=== PATIENT | female | born 1945 | race Asian ===

== ENCOUNTER 2016-11-22 13:38 | Emergency (ER) | payer MEDICARE ==
[~2016-11-22] VITALS: Ht 157.5 cm; Wt 47.7 kg
[~2016-11-22 13:38] MED LIST: HYDR12.56 PO; LATU40TA OR; LORTA5; VIST25CA PO; Z.0.NO CURRENT MEDS
[2016-11-22 13:43] VITALS: BP 157/71; PULSE 81; RESP 20; TEMP 97.3; O2SAT 99
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
[2016-11-22] MEDS ORDERED: TIZA4 PO (14:13)
[2016-11-22] MEDS ORDERED: OXYC-395 PO (14:13)
[2016-11-22] MEDS ORDERED: HYDR-3533 PO ×2 (15:13→15:59)
[2016-11-22] MEDS ORDERED: TIZA4CAP3 PO ×2 (15:13→15:59)
[2016-11-22] MEDS ORDERED: ACETAMINOPHEN/HYDROcodone 325 MG/7.5 MG TAB PO ONE (15:15)
== END 2016-11-22 16:24 | disposition home or self-care (01) ==
LOC: PHEFT 13:38
DX: M62.838 Other muscle spasm (principal); Z76.0 Encounter for issue of repeat prescription; M06.9 Rheumatoid arthritis, unspecified
CPT/HCPCS: 99281

== ENCOUNTER 2017-04-24 17:46 | Emergency (ER) | payer MEDICARE ==
[~2017-04-24] VITALS: Ht 152.4 cm; Wt 47.8 kg
[~2017-04-24 17:46] MED LIST changes: +HYDR-3533 PO; -HYDR12.56 PO; -LATU40TA OR; -LORTA5; +OXYC-395 PO; +TIZA4 PO; +TIZA4CAP3 PO; -VIST25CA PO; -Z.0.NO CURRENT MEDS
[2017-04-24 17:56] VITALS: BP 218/89; PULSE 81; RESP 16; TEMP 98.4; O2SAT 100
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
[2017-04-24] MEDS ORDERED: BACT800T5 PO (18:56)
[2017-04-25] MEDS ORDERED: AMOX875T PO (22:56)
[2017-04-25] MEDS ORDERED: TRIA1SPR5 EACH NARE (22:56)
[2017-04-25] MEDS ORDERED: PSEU1TAB17 PO (22:56)
== END 2017-04-24 19:27 | disposition home or self-care (01) ==
LOC: PHEFT 17:46
DX: L03.011 Cellulitis of right finger (principal); I10 Essential (primary) hypertension; F03.90 Unspecified dementia, unspecified severity, without behavioral disturbance, psychotic disturbance, mood disturbance, and anxiety; Z87.39 Personal history of other diseases of the musculoskeletal system and connective tissue; Z86.2 Personal history of diseases of the blood and blood-forming organs and certain disorders involving the immune mechanism; Z86.59 Personal history of other mental and behavioral disorders; Z86.79 Personal history of other diseases of the circulatory system; Z87.19 Personal history of other diseases of the digestive system
CPT/HCPCS: 10060

== ENCOUNTER 2017-04-25 22:00 | Emergency (ER) | payer MEDICARE ==
[~2017-04-25] VITALS: Ht 157.5 cm; Wt 46.5 kg
[~2017-04-25 22:00] MED LIST changes: +BACT800T5 PO; -HYDR-3533 PO; -OXYC-395 PO; -TIZA4 PO; -TIZA4CAP3 PO
[2017-04-25 22:17] VITALS: BP 187/83; PULSE 73; RESP 16; TEMP 98.2; O2SAT 99
[2017-04-25] MEDS ORDERED: TRIA1SPR5 EACH NARE (22:56)
[2017-04-25] MEDS ORDERED: PSEU1TAB17 PO (22:56)
[2017-04-25] MEDS ORDERED: AMOX875T PO (22:56)
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
[2017-04-25] MEDS ORDERED: AMOXICILLIN 875 MG TAB PO ONE (23:00)
[2017-04-25] MEDS ORDERED: PSEUDOEPHEDRINE HCL 30 MG TAB PO ONE (23:00)
== END 2017-04-25 23:37 | disposition home or self-care (01) ==
LOC: PHED 22:00
DX: H66.003 Acute suppurative otitis media without spontaneous rupture of ear drum, bilateral (principal)
CPT/HCPCS: 99284

== ENCOUNTER 2017-09-09 12:01 | Emergency (ER) | payer MEDICARE ==
[~2017-09-09] VITALS: Ht 154.9 cm; Wt 50.0 kg
[~2017-09-09 12:01] MED LIST changes: +AMOX875T PO; +PSEU1TAB17 PO; +TRIA1SPR5 EACH NARE
[2017-09-09 12:05] VITALS: BP 218/91; PULSE 75; RESP 16; TEMP 98.3; O2SAT 99
[2017-09-09] MEDS ORDERED: PERC10TA27 PO (12:27)
[2017-09-09] MEDS ORDERED: ALPR.5 PO (12:27)
[2017-09-09 12:51] VITALS: BP 168/86
[2017-09-09] MEDS ORDERED: ROBA500T PO (12:53)
[2017-09-09] MEDS ORDERED: MELO15TA20 PO (12:53)
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
[2017-09-09] MEDS ORDERED: ORPHENADRINE INJ 60 MG/2 ML AMP IM ONE (13:00)
[2017-09-09] MEDS ORDERED: KETOROLAC TROMETHAMINE 60 MG/2 ML (IM) VIAL IM ONE (13:00)
== END 2017-09-09 13:21 | disposition home or self-care (01) ==
LOC: PHEFT 12:01
DX: S29.012A Strain of muscle and tendon of back wall of thorax, initial encounter (principal); M54.2 Cervicalgia; G89.29 Other chronic pain; I10 Essential (primary) hypertension; M06.9 Rheumatoid arthritis, unspecified; F41.9 Anxiety disorder, unspecified; F03.90 Unspecified dementia, unspecified severity, without behavioral disturbance, psychotic disturbance, mood disturbance, and anxiety; Z87.19 Personal history of other diseases of the digestive system; X58.XXXA Exposure to other specified factors, initial encounter
CPT/HCPCS: 96372; 99284; J1885; J2360

== ENCOUNTER 2017-09-18 09:36 | Emergency (ER) | payer MEDICARE ==
[~2017-09-18] VITALS: Ht 157.5 cm; Wt 47.5 kg
[~2017-09-18 09:36] MED LIST changes: +ALPR.5 PO; -AMOX875T PO; -BACT800T5 PO; +MELO15TA20 PO; +PERC10TA27 PO; -PSEU1TAB17 PO; +ROBA500T PO; -TRIA1SPR5 EACH NARE
[2017-09-18 09:37] VITALS: BP 180/83; PULSE 61; RESP 18; TEMP 99; O2SAT 100
[2017-09-18] MEDS ORDERED: TIZA4 PO (13:43)
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
== END 2017-09-18 17:14 | disposition left against medical advice (07) ==
LOC: NEPD 09:36
DX: M54.2 Cervicalgia (principal)
CPT/HCPCS: 99281

== ENCOUNTER 2017-09-19 16:24 | Emergency (ER) | payer OTHER, MEDICARE ==
[2017-09-19] MEDS: ONDANSETRON HCL 4 MG/2 ML VIAL IV PUSH (17:32)
[2017-09-19] MEDS: MORPHINE SULFATE 2 MG/ML INJ IV PUSH (17:32)
[2017-09-19 18:05] LABS: AUTOMATED NEUTROPHIL # 5.4 TH/MM3 (1.8-7.7); BASOPHIL # 0.1 TH/MM3 (0-0.2); BASOPHIL % 0.7 % (0.0-2.0); EOSINOPHIL # 0.1 TH/MM3 (0-0.4); EOSINOPHIL % 0.6 % (0.0-4.0); HEMATOCRIT 41.8 % (35.0-46.0); HEMO FLAGS DIFF FINAL; HEMOGLOBIN 14.1 GM/DL (11.6-15.3); LYMPH % 33.5 % (9.0-44.0); MEAN CELL VOLUME 92.7 FL (80.0-100.0); MEAN CORPUSCULAR HEMOGLOBIN 31.2 PG (27.0-34.0); MEAN CORPUSCULAR HGB CONC 33.6 % (32.0-36.0); MEAN PLATELET VOLUME 9.3 FL (7.0-11.0); MONO % 4.9 % (0.0-8.0); MONOCYTE # 0.4 TH/MM3 (0-0.9); NEUT % 60.3 % (16.0-70.0); PLATELET COUNT 263 TH/MM3 (150-450); RED BLOOD COUNT 4.51 MIL/MM3 (4.00-5.30); RED CELL DISTRIBUTION WIDTH 12.9 % (11.6-17.2)
[2017-09-19 18:19] LABS: INTERNATIONAL NORMALIZED RATIO 1.1 RATIO; PROTHROMBIN TIME - PATIENT 10.7 SEC (9.8-11.6)
[2017-09-19 18:21] LABS: SALICYLATES LESS THAN 1.7 MG/DL (2.8-20.0)
[2017-09-19 19:06] LABS: ANION GAP 13 MEQ/L (5-15); BICARBONATE 17.4 MEQ/L (21.0-32.0); BLOOD UREA NITROGEN 19 MG/DL (7-18); CHLORIDE 113 MEQ/L (98-107); CREATININE 0.93 MG/DL (0.50-1.00); GLOMERULAR FILTRATION RATE 59 ML/MIN (>89); GLUCOSE,RANDOM 74 MG/DL (74-106); MAGNESIUM 2.3 MG/DL (1.5-2.5); SODIUM (NA) 143 MEQ/L (136-145)
[2017-09-19 19:11] LABS: ACETAMINOPHEN LESS THAN 2.0 MCG/ML (10.0-30.0); ALCOHOL LESS THAN 3 MG/DL (0-5); POTASSIUM 5.1 MEQ/L (3.5-5.1)
== END 2017-09-19 19:54 | disposition left against medical advice (07) ==
LOC: NEPE 16:24
DX: R51 Headache (principal); Z53.21 Procedure and treatment not carried out due to patient leaving prior to being seen by health care provider; R10.9 Unspecified abdominal pain; M79.601 Pain in right arm; M25.562 Pain in left knee; M25.561 Pain in right knee; R07.89 Other chest pain; V43.52XA Car driver injured in collision with other type car in traffic accident, initial encounter; R94.31 Abnormal electrocardiogram [ECG] [EKG]; G89.29 Other chronic pain
CPT/HCPCS: 71045; 73060; 73564; 80048; 80307; 83735; 85025; 85610; 85730; 93005; 96374; 96375; 99285-25

== ENCOUNTER 2017-12-10 12:25 | Emergency (ER) | payer MEDICARE ==
[~2017-12-10] VITALS: Ht 154.9 cm; Wt 50.0 kg
[~2017-12-10 12:25] MED LIST changes: -MELO15TA20 PO; -ROBA500T PO; +TIZA4 PO
[2017-12-10 12:44] VITALS: BP 184/81; PULSE 86; RESP 15; TEMP 98.8; O2SAT 99
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
[2017-12-10] MEDS ORDERED: KETOPROFEN 50 MG PO ONE (13:15)
[2017-12-10 13:39] LABS: AUTOMATED NEUTROPHIL # 4.5 TH/MM3 (1.8-7.7); BASOPHIL # 0.1 TH/MM3 (0-0.2); BASOPHIL % 0.8 % (0.0-2.0); EOSINOPHIL # 0.1 TH/MM3 (0-0.4); EOSINOPHIL % 0.7 % (0.0-4.0); HEMATOCRIT 39.5 % (35.0-46.0); HEMOGLOBIN 13.5 GM/DL (11.6-15.3); LYMPH % 31.2 % (9.0-44.0); LYMPHOCYTE # 2.3 TH/MM3 (1.0-4.8); MEAN CORPUSCULAR HEMOGLOBIN 31.2 PG (27.0-34.0); MEAN CORPUSCULAR HGB CONC 34.3 % (32.0-36.0); MEAN PLATELET VOLUME 8.6 FL (7.0-11.0); MONO % 6.2 % (0.0-8.0); MONOCYTE # 0.5 TH/MM3 (0-0.9); NEUT % 61.1 % (16.0-70.0); PLATELET COUNT 230 TH/MM3 (150-450); RED BLOOD COUNT 4.34 MIL/MM3 (4.00-5.30); WHITE BLOOD COUNT 7.4 TH/MM3 (4.0-11.0)
[2017-12-10 14:01] LABS: ALBUMIN 4.1 GM/DL (3.4-5.0); AST (GOT) 31 U/L (15-37); BICARBONATE 21.9 MEQ/L (21.0-32.0); BLOOD UREA NITROGEN 12 MG/DL (7-18); CALCIUM 8.6 MG/DL (8.5-10.1); CHLORIDE 111 MEQ/L (98-107); CREATININE 0.86 MG/DL (0.50-1.00); GLOMERULAR FILTRATION RATE 65 ML/MIN (>89); GLUCOSE,RANDOM 90 MG/DL (74-106); SODIUM (NA) 141 MEQ/L (136-145)
[2017-12-10 14:02] LABS: ALT (GPT) 24 U/L (10-53)
[2017-12-10 14:06] LABS: BACTERIA, URINE MANY /hpf; BILIRUBIN, URINE NEG (NEG); BLOOD, URINE NEG (NEG); GLUCOSE,URINE NEG (NEG); HYALINE CAST, URINE 2 /lpf (RARE); KETONE, URINE NEG (NEG); NITRITE,URINE POS (NEG); URINE COLOR LIGHT-YELLOW (YELLW/STRAW); URINE LEUKOCYTE ESTERASE TRACE (NEG)
[2017-12-10 14:12] LABS: ALKALINE PHOSPHATASE 69 U/L (45-117); TOTAL BILIRUBIN ADULT 0.3 MG/DL (0.2-1.0); TOTAL PROTEIN 8.2 GM/DL (6.4-8.2)
[2017-12-10 14:45] VITALS: BP 174/79; PULSE 77; RESP 15; O2SAT 99
[2017-12-10] MEDS ORDERED: MACR100C2 PO (15:14)
[2017-12-10] MEDS ORDERED: NITROFURANTOIN MONOHYD MACROCR 100 MG CAP PO ONE (15:15)
[2017-12-10] MEDS: NITROFURANTOIN MONOHYD MACROCR 100 MG CAP PO SCH (18:53)
[2017-12-10 19:15] VITALS: BP 160/100; PULSE 75; RESP 18; TEMP 97.2; O2SAT 97
[2017-12-11 02:43] VITALS: BP 184/88; PULSE 86; RESP 18; TEMP 99.4; O2SAT 96
[2017-12-11 06:49] VITALS: BP 185/91; PULSE 88; RESP 16; O2SAT 99
[2017-12-11] MEDS: NITROFURANTOIN MONOHYD MACROCR 100 MG CAP PO SCH (09:00)
[2017-12-11 10:41] VITALS: BP 188/105; PULSE 99; RESP 18; TEMP 98.6; O2SAT 98
[2017-12-11] MEDS ORDERED: KETOPROFEN 50 MG PO ONE (10:45)
[2017-12-11] MEDS ORDERED: LISINOPRIL 20 MG TAB PO ONE (10:45)
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
== END 2017-12-11 13:04 | disposition home or self-care (01) ==
LOC: NEPD 12:25 → NEPJ 12-11 13:04
DX: F31.78 Bipolar disorder, in full remission, most recent episode mixed (principal); N30.00 Acute cystitis without hematuria; B96.1 Klebsiella pneumoniae [K. pneumoniae] as the cause of diseases classified elsewhere; F03.90 Unspecified dementia, unspecified severity, without behavioral disturbance, psychotic disturbance, mood disturbance, and anxiety; I10 Essential (primary) hypertension; M06.9 Rheumatoid arthritis, unspecified; Z86.73 Personal history of transient ischemic attack (TIA), and cerebral infarction without residual deficits; Z79.899 Other long term (current) drug therapy; Z88.8 Allergy status to other drugs, medicaments and biological substances
CPT/HCPCS: 80053; 80307; 81001; 84443; 85025; 87077; 87086; 87186; 99284

== ENCOUNTER 2018-04-29 02:46 | Inpatient (IN) ==
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
[2018-04-29 03:20] LABS: Baso # (Auto) 0.1 th/mm3 (0.0-0.2); Baso % (Auto) 0.7 % (0.0-2.0); Eos # (Auto) 0.1 th/mm3 (0.0-0.4); Eos % (Auto) 0.7 % (0.0-4.0); Hematocrit 45.7 % (35.0-46.0); Hemoglobin 15.1 gm/dL (11.6-15.3); Lymph # (Auto) 4.4 th/mm3 (1.0-4.8); Lymph % (Auto) 40.9 % (9.0-44.0); Mean Corpuscular Hemoglobin 30.9 pg (27.0-34.0); Mean Corpuscular Volume 93.9 fL (80.0-100.0); Mean Platelet Volume 7.7 fL (7.0-11.0); Mono % (Auto) 9.3 % (0.0-8.0); Neut # (Auto) 5.2 th/mm3 (1.8-7.7); Neut % (Auto) 48.4 % (16.0-70.0); Platelet Count 319 th/mm3 (150-450); Red Blood Count 4.87 mil/mm3 (4.00-5.30); Red Cell Distribution Width 13.2 % (11.6-17.2); White Blood Count 10.7 th/mm3 (4.0-11.0)
[2018-04-29 03:40] LABS: Alanine Aminotransferase 23 U/L (10-53); Anion Gap 12 meq/L (5-15); Aspartate Aminotransferase 35 U/L (15-37); Blood Urea Nitrogen 44 mg/dL (7-18); Calcium 9.8 mg/dL (8.5-10.1); Carbon Dioxide 19.9 meq/L (21.0-32.0); Chloride 107 meq/L (98-107); Glomerular Filtration Rate 12 mL/min (>89); Glucose,Random 117 mg/dL (74-106); Potassium 3.8 meq/L (3.5-5.1); Sodium 139 meq/L (136-145)
[2018-04-29 03:49] LABS: Alkaline Phosphatase 61 U/L (45-117); Total Protein 9.3 g/dL (6.4-8.2)
[2018-04-29 04:28] LABS: Amphetamine Screen,Urine Neg (Neg); Barbiturate Screen,Urine Neg (Neg); Cannabinoid Screen,Urine Neg (Neg); Cocaine Screen,Urine Neg (Neg); Opiate Screen,Urine Pos (Neg)
[2018-04-29] MEDS ORDERED: Sod Chloride 0.9% Inj 1,000 ML IV.SIG ONE (07:10)
[2018-04-29] MEDS ORDERED: Sod Chloride 0.9% Inj 1,000 ML IV.CONT SCH (07:30)
--- NOTE | 2018-04-29 08:22 | US ---
EXAM DATE: 04/29/2018 8:18 AM EDT AGE/SEX: 73 years / Female INDICATIONS: Increased BUN/Creatinine. CLINICAL DATA: This is the patient's initial encounter. Patient reports that signs and symptoms have been present for 1 day and indicates a pain score of 10/10. MEDICAL/SURGICAL HISTORY: Hypertension. Transient ischemic attack. Bipolar disorder. Panic att acks. Dementia. Splenectomy. COMPARISON: No prior exams available for comparison. MEASUREMENTS: Right Kidney:__12.1 x 4.7 x 5.7 cm Left Kidney:__10.3 x 4.6 x 6.8 cm FINDINGS: Right Kidney: Normal echotexture and cortical thickness. No mass or hydronephrosis. Left Kidney: Normal echotexture. No mass or hydronephrosis. There is an anechoic avascular lesion in the mid kidney measuring up to 2.1 cm. Bladder: Within normal limits given the degree of distension. Other: None. CONCLUSION: 1. No specific abnormality is identified to explain the abnormal renal function . There is no hydron ephrosis. 2. There is a simple benign-appearing cyst in the left mid kidney measuring up to 2.1 cm. Electronically signed by: Roni Holden MD 04/29/2018 8:21 AM EDT
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
== END 2018-04-29 12:25 ==
LOC: NEPJ 02:46 → NEDA 02:46 → H4EA 08:44
PROVIDERS: ADMIT Internal Medicine; ATTEND Internal Medicine

== ENCOUNTER 2018-04-29 12:30 | Inpatient (IN) ==
[2018-04-29] MEDS ORDERED: Bisacodyl 10 MG Supp RECTAL PRN (14:50)
[2018-04-29] MEDS ORDERED: Haloperidol Inj 5 MG/ML Ampul IM PRN (14:50)
[2018-04-29] MEDS ORDERED: Aluminum/Magnesium/Simethacone Susp 30 ML UDC PO PRN (14:50)
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
[2018-04-29] MEDS: Sod Chloride 0.9% Inj 1,000 ML IV.CONT SCH (16:52)
[2018-04-29] MEDS: QUEtiapine 25 MG Tablet PO SCH ×2 (17:14→20:41)
[2018-04-29] MEDS: Senna/Docusate Sodium 8.6/50 MG Tablet PO SCH (20:41)
[2018-04-30] MEDS: LORazepam 1 MG Tablet PO PRN ×2 (03:27→12:54)
[2018-04-30] MEDS: Senna/Docusate Sodium 8.6/50 MG Tablet PO SCH ×2 (09:10→21:13)
[2018-04-30] MEDS: QUEtiapine 25 MG Tablet PO SCH ×2 (09:10→21:13)
[2018-04-30 12:48] LABS: Chol/HDL Ratio 4.28 Ratio; HDL Cholesterol 54.8 mg/dL (40.0-60.0)
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
[2018-04-30] MEDS ORDERED: amLODIPine 5 MG Tablet PO SCH (14:30)
[2018-04-30 14:59] LABS: Hemoglobin A1c 5.7 % (4.3-6.0)
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
[2018-04-30] MEDS: Sod Chloride 0.9% Inj 1,000 ML IV.CONT SCH ×2 (18:17→20:00)
[2018-04-30 23:45] LABS: Bacteria,Urine Rare /hpf; Bilirubin,Urine Negative (Negative); Clarity,Urine Clear (Clear); Color,Urine Yellow (Yellw/Straw); Glucose,Urine (UA) Negative (Negative); Leukocyte Esterase,Urine Negative (Negative); Mucus,Urine Few /lpf (Occasional); Nitrite,Urine Negative (Negative); Specific Gravity,Urine 1.009 (1.002-1.035); Squamous Epithelial Cell,Urine <1 /hpf (0-5)
[2018-05-01] MEDS: Sod Chloride 0.9% Inj 1,000 ML IV.CONT SCH ×3 (06:46→18:54)
[2018-05-01 09:49] LABS: Baso % (Auto) 0.6 % (0.0-2.0); Eos # (Auto) 0.1 th/mm3 (0.0-0.4); Hematocrit 48.6 % (35.0-46.0); Hemoglobin 16.2 gm/dL (11.6-15.3); Lymph # (Auto) 2.9 th/mm3 (1.0-4.8); Lymph % (Auto) 35.3 % (9.0-44.0); Mean Corpuscular HGB Conc 33.3 % (32.0-36.0); Mean Corpuscular Hemoglobin 31.3 pg (27.0-34.0); Mean Corpuscular Volume 94.2 fL (80.0-100.0); Mean Platelet Volume 8.1 fL (7.0-11.0); Mono # (Auto) 0.4 th/mm3 (0.0-0.9); Mono % (Auto) 4.5 % (0.0-8.0); Neut # (Auto) 4.7 th/mm3 (1.8-7.7); Neut % (Auto) 58.6 % (16.0-70.0); Platelet Count 315 th/mm3 (150-450); Red Blood Count 5.16 mil/mm3 (4.00-5.30); Red Cell Distribution Width 12.7 % (11.6-17.2); White Blood Count 8.1 th/mm3 (4.0-11.0)
[2018-05-01] MEDS: QUEtiapine 25 MG Tablet PO SCH ×2 (09:54→20:32)
[2018-05-01] MEDS: Senna/Docusate Sodium 8.6/50 MG Tablet PO SCH ×2 (09:54→20:32)
[2018-05-01] MEDS: hydrALAZINE 25 MG Tablet PO SCH ×2 (09:54→20:32)
[2018-05-01] MEDS: amLODIPine 5 MG Tablet PO SCH (09:58)
[2018-05-01 10:30] LABS: Alanine Aminotransferase 38 U/L (10-53); Albumin 3.8 g/dL (3.4-5.0); Alkaline Phosphatase 63 U/L (45-117); Anion Gap 10 meq/L (5-15); Aspartate Aminotransferase 44 U/L (15-37); Blood Urea Nitrogen 17 mg/dL (7-18); Carbon Dioxide 18.9 meq/L (21.0-32.0); Chloride 112 meq/L (98-107); Glomerular Filtration Rate 67 mL/min (>89); Glucose,Random 106 mg/dL (74-106); Potassium 4.2 meq/L (3.5-5.1); Sodium 141 meq/L (136-145); Total Protein 8.1 g/dL (6.4-8.2)
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
--- NOTE | 2018-05-01 13:28 | ECG ---
Date Performed: 04/30/2018 Time Performed: 14:36:14 PTAGE: 73 years EKG: Sinus rhythm RIGHT BUNDLE BRANCH BLOCK ABNORMAL ECG PREVIOUS TRACING : 09/19/2017 18.58 Since the previous tracing, no significant change noted DOCTOR: Tio Coleman Interpretating Date/Time 05/01/2018 13:26:31
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
[2018-05-01] MEDS: LORazepam 1 MG Tablet PO PRN (20:32)
[2018-05-02] MEDS: QUEtiapine 25 MG Tablet PO SCH ×2 (08:39→21:59)
[2018-05-02] MEDS: Senna/Docusate Sodium 8.6/50 MG Tablet PO SCH ×2 (08:39→21:59)
[2018-05-02] MEDS: hydrALAZINE 25 MG Tablet PO SCH ×2 (08:39→21:59)
[2018-05-02] MEDS: amLODIPine 5 MG Tablet PO SCH (08:40)
[2018-05-02] MEDS: Lisinopril 20 MG Tablet PO SCH (08:40)
[2018-05-02] MEDS: Sod Chloride 0.9% Inj 1,000 ML IV.CONT SCH (08:41)
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
[2018-05-03] MEDS: amLODIPine 5 MG Tablet PO SCH (09:05)
[2018-05-03] MEDS: QUEtiapine 25 MG Tablet PO SCH ×2 (09:05→21:29)
[2018-05-03] MEDS: hydrALAZINE 25 MG Tablet PO SCH ×2 (09:05→21:29)
[2018-05-03] MEDS: Senna/Docusate Sodium 8.6/50 MG Tablet PO SCH ×2 (09:05→21:29)
[2018-05-03] MEDS: Lisinopril 20 MG Tablet PO SCH (09:05)
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
[2018-05-04] MEDS: amLODIPine 5 MG Tablet PO SCH (08:59)
[2018-05-04] MEDS: hydrALAZINE 25 MG Tablet PO SCH ×2 (09:00→20:46)
[2018-05-04] MEDS: Lisinopril 20 MG Tablet PO SCH (09:01)
[2018-05-04] MEDS: Senna/Docusate Sodium 8.6/50 MG Tablet PO SCH ×2 (09:01→20:46)
[2018-05-04] MEDS: QUEtiapine 25 MG Tablet PO SCH ×2 (09:01→20:46)
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
[2018-05-05] MEDS: hydrALAZINE 25 MG Tablet PO SCH ×2 (09:54→21:45)
[2018-05-05] MEDS: Lisinopril 20 MG Tablet PO SCH (09:54)
[2018-05-05] MEDS: amLODIPine 5 MG Tablet PO SCH (09:54)
[2018-05-05] MEDS: QUEtiapine 25 MG Tablet PO SCH ×2 (09:54→21:46)
[2018-05-05] MEDS: Senna/Docusate Sodium 8.6/50 MG Tablet PO SCH ×2 (09:54→21:47)
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
[2018-05-06] MEDS: Senna/Docusate Sodium 8.6/50 MG Tablet PO SCH (09:39)
[2018-05-06] MEDS: hydrALAZINE 25 MG Tablet PO SCH (09:39)
[2018-05-06] MEDS: Lisinopril 20 MG Tablet PO SCH (09:39)
[2018-05-06] MEDS: amLODIPine 5 MG Tablet PO SCH (09:39)
[2018-05-06] MEDS: QUEtiapine 25 MG Tablet PO SCH (09:40)
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
== END 2018-05-06 12:10 | disposition home or self-care (01) ==
LOC: H4EA 12:54 → H250 05-02 20:52
PROVIDERS: ADMIT Student in an Organized Health Care Education/Training Program; ATTEND Student in an Organized Health Care Education/Training Program